=== PATIENT | male | born 1985 | race Caucasian/White ===

== ENCOUNTER 2025-03-26 18:07 | Emergency (ER) | payer BC ==
[2025-03-26] MEDS: Lidocaine 1% 5 ML VIAL INJECT ONE (19:12)
[2025-03-26] MEDS: Diphtheria,Pertussis(Acell),Tetanus Vaccine 0.5 ML Syringe IM ONE (19:12)
[2025-03-26] MEDS: Lidocaine/Epineph/Tetracaine 3 ML Syringe TOP ONE ×2 (19:40)
== END 2025-03-26 21:53 | disposition home or self-care (01) ==
LOC: MW.ED 18:07
DX: S61.213A Laceration without foreign body of left middle finger without damage to nail, initial encounter (principal); S67.193A Crushing injury of left middle finger, initial encounter; J45.909 Unspecified asthma, uncomplicated; Z79.51 Long term (current) use of inhaled steroids; Z79.899 Other long term (current) drug therapy; Z87.891 Personal history of nicotine dependence; Z75.3 Unavailability and inaccessibility of health-care facilities; W22.8XXA Striking against or struck by other objects, initial encounter; Z23 Encounter for immunization
CPT/HCPCS: 12002; 73130; 90471; 90715; 99283; A9270; J2003; 12042